=== PATIENT | female | born 1960 | race American Indian/Alaskan Native ===

== ENCOUNTER 2019-02-27 12:24 | Day surgery (SDC) | payer MEDICAID ==
[2019-02-27] MEDS ORDERED: NACL 0.9% 1000 ML 1,000 ML IV SCH (13:00)
--- NOTE | 2019-02-27 13:40 | Anesthesia Day of Surgery ---
Anesthesia Day of Surgery - Day of Surgery Patient Examined: Yes Patient H&P Reviewed: Yes Patient is NPO: Yes
--- NOTE | 2019-02-27 13:43 | Anesthesia Consultation ---
Anesthesia Consult and Med Hx Date of service: 02/27/19 - Airway Anesthetic Teeth Evaluation: Chipped ROM Head & Neck: Adequate Mental/Hyoid Distance: Adequate Mallampati Class: Class III Intubation Access Assessment: Possibly Difficult - Pre-Operative Health Status ASA Pre-Surgery Classification: ASA3 Proposed Anesthetic Plan: MAC - Pulmonary Hx Smoking: Yes - Cardiovascular System Hx Hypertension: Yes Hx Heart Murmur: Yes - Gastrointestinal Hx Gastroesophageal Reflux Disease: Yes - Endocrine Hx Thyroid Disease: Yes Hx Hypothyroidism: Yes - Other Systems Hx Alcohol Use: Yes
[2019-02-27] MEDS ORDERED: DIPRIVAN 10 MG/ML IV ONE ×3 (15:02→15:03)
[2019-02-27 15:52] VITALS: BP 130/89
--- NOTE | 2019-02-27 16:35 | Operative Report ---
Operative Report Operative Report: Date of procedure: 02/27/2019 Procedure: Colonoscopy. Attending physician: Yaron Zhao MD Separator Tender: Yaron Zhao MD Indication: Patient is a 58-year-old female who presents for screening colonoscopy. A colonoscopy serves to evaluate patient for colorectal cancer screening. Consent: Informed consent was obtained after advising the patient and family regarding nature of this procedure, its indications, potential benefits as well as possible complications including but not limited to bleeding perforation and adverse reaction to medication, infection as well as other cardiopulmonary complications. An informed written and verbal consent was then obtained after due opportunity was provided for questions and answers. Monitoring: Patient was monitored continuously with pulse oximetry and electrocardiographic recordings as well as blood pressure recordings. Vital signs remained stable throughout this procedure with no untoward events. Preoperative assessment: Patient was assessed immediately prior to this procedure for capacity to tolerate monitored anesthesia care and moderate sedation as well as general anesthesia. Patient's ASA classification is 2, Mallampati class is 2, Hyomental distance is 3. Instrument: Olympus video colonoscope.: CF-HQ 190L Medications: Propofol given intravenously in divided doses. For details please refer to anesthesia records. Description of procedure: Patient was placed in the left lateral decubitus position after achieving sedation, a digital rectal examination was performed following which the colonoscope was introduced into the anal verge and advanced to the cecum which was identified by the cecal valve, the appendiceal orifice, as well as by the cecal strap and direct transillumination. The colonoscope was subsequently withdrawn with careful inspection of all mucosal surfaces. Patient tolerated this procedure well and was subsequently taken to the recovery room. The following findings were noted. Findings: [place] bowel preparation scale score : 6 : The overall preparation therefore deemed adequate with a scale score of 6. The withdrawal time from the cecum was greater than 6 minutes. The cecum was normal. The Ascending colon was normal. The transverse colon was normal. The descending colon was normal. The sigmoid colon was normal. The rectum was normal. On the retroflex view at the anal verge, patient had internal hemorrhoids. Impression: Normal Colonoscopy Internal hemorrhoids. Plan: High-fiber diet. Repeat colonoscopy in 10 years.
--- NOTE | 2019-02-27 16:35 | Discharge Summary ---
Short Stay Discharge Plan Activity: advance as tolerated Weight Bearing Status: Weight Bear as Tolerated Diet: regular Additional Instructions: Post Sedation D/C Instructions When you return home you may resume your regular diet unless otherwise directed. -Go directly home from the hospital and rest quietly. You may resume normal activities tomorrow. -Do NOT drive, return to work, operate any machinery or make any important personal or business decisions today. -Do NOT drink any alcohol or take nerve or sleeping drugs. They add to the effects of the medicine still present in your body. Follow up with: SHENG LAGUNAS MD [Primary Care Provider] - 7 Days
== END 2019-02-27 12:25 | disposition home or self-care (01) ==
LOC: GIO 12:24
PROVIDERS: ATTEND Internal Medicine Gastroenterology
DX: Z12.11 Encounter for screening for malignant neoplasm of colon (principal); K64.8 Other hemorrhoids; I10 Essential (primary) hypertension; K21.9 Gastro-esophageal reflux disease without esophagitis; E03.9 Hypothyroidism, unspecified; F17.210 Nicotine dependence, cigarettes, uncomplicated; Z79.82 Long term (current) use of aspirin; Z79.899 Other long term (current) drug therapy; Z72.89 Other problems related to lifestyle; Z98.890 Other specified postprocedural states
CPT/HCPCS: 45378; J2704; J7030

== ENCOUNTER 2019-06-01 10:54 | Emergency (ER) | payer MEDICAID ==
[2019-06-01 11:00] VITALS: BP 144/84
--- NOTE | 2019-06-01 11:09 | Emergency Department Report ---
Chief Complaint: Extremity Injury, Lower Stated Complaint: R FOOT PAIN Time Seen by Provider: 06/01/19 11:04 - HPI History of Present Illness: 58 y/o female comes in for 3 week history of tingling in feet. Reports that she was recently diagnosed with sciatic. She reports that her PCP is out for 1 month. - Exam Vital Signs: Vital Signs 06/01/19 10:59 Temperature 97.9 F Pulse Rate 78 Respiratory 18 Rate Blood Pressure 144/84 O2 Sat by Pulse 98 Oximetry MSE screening note: Focused history and physical exam performed. Due to findings the following was ordered: Patient is referred to Dr. Rodriguez or her PCP. ED Disposition for MSE Condition: Stable
== END 2019-06-01 11:51 | disposition home or self-care (01) ==
LOC: ED 10:54
DX: M79.671 Pain in right foot (principal); Z53.21 Procedure and treatment not carried out due to patient leaving prior to being seen by health care provider